=== PATIENT | female | born 1945 | race Caucasian/White ===

== ENCOUNTER 2022-01-30 05:51 | Inpatient (IN) | payer MEDICARE, OTHER ==
[2022-01-23 12:27] LABS: BASOPHILS % (AUTO) 0.5 % (0-1); EOSINOPHILS # (AUTO) 0.1 X10'3 (0-0.9); EOSINOPHILS % (AUTO) 1.8 % (0-6); LYMPHOCYTES # (AUTO) 1.7 X10'3 (1.1-4.8); LYMPHOCYTES % (AUTO) 29.3 % (21-51); MEAN CORPUSCULAR HEMOGLOBIN 30.8 PG (27.0-31.0); MEAN CORPUSCULAR HGB CONC 33.6 g/dL (33.0-36.5); MEAN CORPUSCULAR VOLUME 91.6 FL (78-98); MONOCYTES # (AUTO) 0.4 X10'3 (0-0.9); MONOCYTES % (AUTO) 6.2 % (2-12); NEUTROPHILS # (AUTO) 3.7 X10'3 (1.8-7.7); NEUTROPHILS % (AUTO) 62.2 % (42-75); PRE OP HEMATOCRIT 42.2 % (35.0-45.0); PRE OP HEMOGLOBIN 14.2 g/dL (12.0-16.0); PRE OP PLATELET COUNT 303 X10'3 (140-440); RED BLOOD COUNT 4.61 X10'6 (4.20-5.60); RED CELL DISTRIBUTION WIDTH 13.9 % (11.5-14.5)
[2022-01-23 12:44] LABS: ALBUMIN 3.9 G/DL (3.4-5.0); ALBUMIN/GLOBULIN RATIO 1.3 (1.1-1.5); ALKALINE PHOSPHATASE 73 IU/L (46-116); BLOOD UREA NITROGEN 15 MG/DL (7-18); BUN/CREATININE RATIO 15.5 (6.6-38.0); CALCIUM 9.5 MG/DL (8.5-10.1); CHLORIDE 102 MMOL/L (99-107); CREATININE 0.97 MG/DL (0.40-0.90); PRE OP ALT 33 U/L (30-65); PRE OP ANION GAP 12 (8-16); PRE OP AST 30 U/L (10-37); PRE OP GLUCOSE 95 MG/DL (70-104); PRE OP SODIUM 141 MMOL/L (135-145); TOTAL CARBON DIOXIDE 27.4 MMOL/L (24-32); eGFR 56 ML/MIN
[~2022-01-30] VITALS: Ht 163.8 cm; Wt 65.8 kg
[2022-01-30] VITALS (18 sets, daily range): BP systolic 100–160; BP diastolic 52–70
[~2022-01-30 05:51] MED LIST: CHOL100040 PO; FISH1CAP17 PO; LACT1CAP65 PO; MULT-1085 PO; cefazolin/dext.iso 2gm/50ml IV ONE; famotidine 20mg tablet PO ONE; ringers solution, lacted 1,000 ML IV SCH
[2022-01-30] MEDS ORDERED: MIDAZolam 1 MG/ML 5ML VIAL ONE (06:21)
[2022-01-30] MEDS ORDERED: fentaNYL/PF 50MCG/1 ML 2ML syringe ONE (06:21)
[2022-01-30] MEDS ORDERED: BUPIVAcaine 0.5% inj/PF 30 ML ONE (06:48)
[2022-01-30] MEDS ORDERED: LIDOcaine 1% 30ml preserv. free vial ONE (06:48)
[2022-01-30] MEDS ORDERED: LIDOcaine 1% (10mg/ml) 2ml vial ONE (07:02)
--- NOTE | 2022-01-30 10:48 | NUR ---
PT STATES HER ANKLE IS VERY SORE FROM A FALL OFF THE TOILET LAST NIGHT. SHE MADE A LOT OF TRIPS TO THE BATHROOM DUE TO HER BOWEL PREP FOR TODAYS PROCEDURE. RECEIVED ORDERS PER ANESTHESIA FOR A LEFT ANKLE XRAY TO RULE OUT FRACTURE. RADIAOLOGY TECH HERE FOR PORTABLE XRAY OF ANKLE. WILL CHECK FOR REPORT
[2022-01-30] MEDS ORDERED: INDOCYANINE GREEN 25 MG/10 ML VIAL IV ONE (11:20)
[2022-01-30] MEDS ORDERED: rocuronium 10mg/ml inj IV ONE (11:57)
[2022-01-30] MEDS ORDERED: midazolam 1 mg/ML 2ml injection ONE (11:57)
[2022-01-30] MEDS ORDERED: propofol inj 20 ML IV ONE (11:57)
[2022-01-30] MEDS ORDERED: fentaNYL /PF 50mcg/ml 5ml ampule ONE (11:57)
[2022-01-30] MEDS ORDERED: BUPIVAcaine 0.5% inj/PF 30 ml vial IJ ONE (12:23)
[2022-01-30] MEDS ORDERED: dexamethasone sod phosphate 4mg/ml inj. ONE (12:32)
[2022-01-30] MEDS ORDERED: ondansetron/PF 4mg/2ml inj ONE (12:56)
[2022-01-30] MEDS ORDERED: sugammadex 200mg/2ml injection IV ONE (12:57)
--- NOTE | 2022-01-30 13:15 | NUR ---
PT ARRIVED TO [facility]IA [facility], ACCOMPANIED BY DR. JACKSON-ANESTHESIA REPORT GIVEN, VSS PT WAKING UP, DENIES PAIN, DERMABOND X 4 TO ABD-CDI, SCDS ON, PIV 20G TO LEFT A/C.
[2022-01-30] MEDS ORDERED: HYDROcodone/acetaminophen 5mg/325mg tablet PO PRN (13:25)
--- NOTE | 2022-01-30 15:15 | NUR ---
PT AWAKE, VSS, DENIES PAIN, MOVING WELL TO GET DRESSED, DERMABOND SITES X4-CDI, PIV D/CD-CANULA INTACT, SCDS OFF, TOLERATING JUICE AND CRACKERS, D/C INSTRUCTIONS GIVEN TO PT-ALL QUESTIONS ANSWERED, PT TAKEN WITH ALL BELONGINGS TO [facility] FOR TRANSPORT HOME.
== END 2022-01-30 15:15 | disposition home or self-care (01) | DRG 407 ==
LOC: PAS IN 05:51
PROVIDERS: ADMIT Surgery; ATTEND Surgery
PROC: 8E0W4CZ Robotic Assisted Procedure of Trunk Region, Percutaneous Endoscopic Approach (ICD-10-PCS; 2022-01-30)
PROC: 0DBN8ZZ Excision of Sigmoid Colon, Via Natural or Artificial Opening Endoscopic (ICD-10-PCS; 2022-01-30)
PROC: 0DBL8ZZ Excision of Transverse Colon, Via Natural or Artificial Opening Endoscopic (ICD-10-PCS; 2022-01-30)
PROC: 0FB14ZZ Excision of Right Lobe Liver, Percutaneous Endoscopic Approach (ICD-10-PCS; principal; 2022-01-30 11:53)
DX: R16.0 Hepatomegaly, not elsewhere classified (principal); R19.00 Intra-abdominal and pelvic swelling, mass and lump, unspecified site; K57.90 Diverticulosis of intestine, part unspecified, without perforation or abscess without bleeding; K64.1 Second degree hemorrhoids; Z88.5 Allergy status to narcotic agent; Z95.0 Presence of cardiac pacemaker; Z90.12 Acquired absence of left breast and nipple; Z90.710 Acquired absence of both cervix and uterus; Z98.49 Cataract extraction status, unspecified eye
CPT/HCPCS: 36415; 45385; 73600; 80053; 82948; 85025; 88305; 88307; 99152; 99153; A4215; A4618; A4620; C1758; C1773; J0690; J1100; J2250; J2405; J2704; J3010; J3490; J7120; S0020; U0003; U0005

== ENCOUNTER 2025-10-01 10:55 | Emergency (ER) | payer MEDICARE, OTHER ==
[~2025-10-01] VITALS: Ht 162.6 cm; Wt 60.6 kg
[~2025-10-01 10:55] MED LIST changes: -cefazolin/dext.iso 2gm/50ml IV ONE; -famotidine 20mg tablet PO ONE; -ringers solution, lacted 1,000 ML IV SCH
[2025-10-01 10:58] VITALS: BP 168/75; PULSE 96; RESP 18; O2SAT 98
--- NOTE | 2025-10-01 11:34 | Physician Documentation ---
History of Present Illness ~ Chief Complaint: Post-operative complication Stated Complaint: POST OP COMPLICATIONS Time Seen by MD: 11:13 OK to notify your PCP?: Yes Source: patient Mode of Arrival: POV Exam Limitations: no limitations HPI 80-year-old female with chief complaint noticing some discoloration on the d ressing over her left thigh where she has a drain that was placed a week ago. She states the drain has not been draining out much and so she was surprised by the discoloration on the compression wrap. No pain. No fever, chills, or general malaise. She states "I actually feel great." Medication Reconciliation Allergies: Coded Allergies: iodine (Verified Allergy, Mild, Redness, 10/01/25) codeine (Unverified Allergy, Unknown, Restless- can't sleep, 10/01/25) cortisone (Unverified Allergy, Unknown, flu-like symptoms, 10/01/25) Scheduled Cholecalciferol (Vitamin D3) (Vitamin D3), 1 CAP PO DAILY, (Reported) Fish Oil/Borage/Flax/Om3,6,9 1 ([place] 3-6-9 Complex Softgel), 1 CAP PO DAILY, (Reported) Lactobacillus Acidophilus (Probiotic), 1 CAP PO DAILY, (Reported) Multivitamin (Multi Vitamin Daily), 1 TAB PO DAILY, (Reported) Discontinued Medications Hydrocodone Bit/Acetaminophen (Hydrocodon-Acetaminophn 10-325 tablet), 1 TAB PO Q4H PRN for SEVERE PAIN 7-10 Discontinued Reason: patient no longer taking Past Medical History Past Medical History: No Pertinent History Review of Systems All Other Systems at this time: Reviewed and Negative Physical Exam Vital Signs: Temperature: 96.9, Source: Temporal, Heart Rate: 96, Respiratory Rate: 18, BP: 168/75, Pulse Oximetry: 98, Weight: 60.600 Oxygen Flow Rate: 0 Physical Exam General Appearance: Alert, WD/WN. NAD. HEENT: NCAT, PERRL, EOMI. Neck: Supple, trachea midline. Cardiovascular: RRR. No m/r/g. Lungs: CTAB. Breathing unlabored Extremities: Normal inspection. No edema. Skin: Warm/dry, normal color. LEFT HIP COMPRESSION DRESSING OVER THIGH SMALL CLEAR DISCOLORATION MEASURING ABOUT 2CM IN DIAMETER, UPON REMOVAL OF THE COMPRESSION DRESSING THE TELFA DRESSING OVER THE DRAINAGE TUBE HAD ROLLED BACK EXPOSING SOME OF THE TUBE WHERE THE TUBE COMES OUT OF THE INCISION. NO ERYTHEMA, NO EDEMA. Neurological: Alert and oriented x4, normal gait. Psychiatric: Affect congruent with mood. Progress Results/Orders Results/Orders Vital Signs 10/01/25 10/01/25 10:58 11:49 Temp 96.9 96.9 Pulse 96 Resp 18 B/P (MAP) 168/75 Pulse Ox 98 O2 Flow Rate 0 Medical Decision Making Additional information obtaine: N/A Findings N/A Differential Dx:Considerations: Include: Abscess, AIDS/HIV, Anthrax (cutaneous), Atopic dermatitis, Candidiasis, Contact dermatitis, Drug reaction, Erythema multiforme, Erysipelas, Gangrene, Herpes zoster, Herpes simplex, Hidradenitis suppurativa, Impetigo, Intertrigo, Lymes disease, Molluscum contagiosum, Osteomyelitis, Pediculosis, Pityriasis rosea, Psoriaisis, RMSF, Rosacea, Scabies, Scarlet fever, Tinea, Urticaria, Varicella, Viral exanthema, Other Departure Time of Disposition: 18:47 Disposition: 01 HOME / SELF CARE / HOMELESS Impression: Primary Impression: Drainage from wound Condition: Stable Discharge Instructions: General Discharge Instructions Additional Instructions: THE DISCOLORATION OF THE COMPRESSION WRAP ON YOUR SKIN WAS DUE TO THE TEGADERM DRESSING PARTIALLY COMING OFF AND FLUID SEEPING OUT FROM AROUND THE DRAIN, THERE IS NO CONCERN FOR INFECTION AT THIS TIME, WE PLACED ANOTHER TEGADERM DRESSING OVER THE AREA TO ANCHOR THE DRAIN BACK IN PLACE. YOU ARE SCHEDULED TO HAVE DRAIN REMOVED TOMORROW. IF YOU EXPERIENCE INCREASING PAIN, FEVER, ODOR FROM AREA OR ANY OTHER CONCERNING SYMPTOMS RETURN TO ER Referrals: NO PRIMARY CARE PROVIDER (PCP) Education Educated: Patient, Family Educated regarding: diagnosis, treatment, need for follow up Signature Scribe Signature: X Attestation: IRASEMA AGRAWAL Oct 01, 2025 11:34
[2025-10-01 11:49] VITALS: TEMP 96.9
== END 2025-10-01 11:53 | disposition home or self-care (01) ==
LOC: ER 10:56
DX: T81.49XA Infection following a procedure, other surgical site, initial encounter (principal); Z88.5 Allergy status to narcotic agent; Z88.8 Allergy status to other drugs, medicaments and biological substances; Z79.899 Other long term (current) drug therapy
CPT/HCPCS: 99282; A6258